=== PATIENT | female | born 1995 | race Caucasian/White ===

== ENCOUNTER → 2019-01-26 09:52 | Outpatient (CLI) | payer OTHER, SELFPAY ==
[2019-01-26 13:13] LABS: T3 Total - Triiodothyronine 1.08 ng/mL (0.6-1.81)
[2019-01-26 13:18] LABS: Follicle Stimulating Hormone 2.4 mIU/mL; Prolactin 11.3 ng/mL; T4 Free Direct 0.86 ng/dL (0.76-1.46); Thyroid Stim Hormone (TSH) 5.01 uIU/mL (0.358-3.74)
[2019-01-29 20:08] LABS: DHEA Sulfate 237.3 ug/dL (110.0-431.7); Testosterone, % Free 1.21 % (0.50-2.80); Testosterone, Free 0.52 ng/dL (0.10-0.85); Testosterone, Total 43 ng/dL (8-48)
[2019-01-30 08:44] LABS: Androstenedione 177 ng/dL (41-262)
== END ==
LOC: MTLAB 09:52
PROVIDERS: Family Provider Family Medicine; PCP Family Medicine; Referring Provider Dermatology Pediatric Dermatology; Visit Provider Dermatology Pediatric Dermatology
DX: E34.8 Other specified endocrine disorders (principal); L70.8 Other acne
CPT/HCPCS: 36415; 82157; 82627; 83001; 84146; 84402; 84403; 84439; 84443; 84480; 82626